=== PATIENT | female | born 1970 | race Caucasian/White ===

== ENCOUNTER 2017-03-30 10:25 | Emergency (ER) | payer OTHER ==
[~2017-03-30] VITALS: Ht 165.1 cm; Wt 70.3 kg
[~2017-03-30 10:25] MED LIST: PERCOCET 325 MG1 TA2 PO
--- NOTE | 2017-03-30 10:28 | ED GI/GU/ABDOMINAL COMPLAINT ---
History of Present Illness General Chief Complaint: Abdominal Pain/Flank Pain Stated Complaint: CP WHEN TAKING A DEEP BREATH, RLQ ABD PAIN Source: patient Exam Limitations: no limitations Vital Signs & Intake/Output Vital Signs & Intake/Output Vital Signs Date Time Temp Pulse Resp B/P B/P Pulse O2 O2 Flow FiO2 Mean Ox Delivery Rate 03/30 1247 96.6 63 18 110/55 99 Room Air 03/30 1038 98.4 79 20 112/58 96 Room Air Allergies Coded Allergies: Penicillins (Intermediate, UPSET STOMACH 03/30/17) Reconcile Medications Conjugated Estrogen Medroxypr (Prempro 0.45-1.5 MG Tablet) 0.45 MG-1.5 MG TABLET 1 TAB PO QPM HORMONE (Reported) Diazepam 10 MG TABLET 1 TAB PO DAILY PRN ANXIETY (Reported) Triage Nurses Notes Reviewed? yes ? N Is pt currently ? No Duration: intermittent Timing: recent history Severity Numbers: 7 Radiation: no radiation HPI: Patient is a 46-year-old female with past medical history of anxiety, asthma and postmenopausal symptoms who recently began Prempro in which patient states that yesterday while after an emotional and stressful situation at home she had acute onset of substernal nonradiating chest wall pain. Patient states that deep inhalation and palpation make worse. Patient states that today symptoms were still persistent however at rest she has NO complaints. Patient is an every day smoker and has been complaining of a chronic nonproductive cough with no new changes Patient did not take any medication for her symptoms. Denies any fever chills neck pain neck stiffness, nausea vomiting arm pain jaw pain diaphoresis hemoptysis shortness of breath leg swelling. Patient also does state that she has a 3 month history of right lower quadrant abdominal pain in which she described as mild in nature however she did follow up with her [facility] 3 weeks ago for a endometrial biopsy however patient failed to mention the right lower quadrant pain to the [employer] Dr. BROWN. Patient also has been complaining of right-sided scapular pain that is made worse with palpation and deep inhalation the past few weeks. Patient denies any dysuria hematuria vaginal bleeding or discharge (DARIEN CRUM) Past History Travel History Traveled to [place] past 21 day No Medical History Any Pertinent Medical History? 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 No (DARIEN CRUM) Review of Systems Review of Systems Constitutional: Reports: no symptoms. EENTM: Reports: no symptoms. Respiratory: Reports: see HPI, cough. Denies: short of breath. Cardiovascular: Reports: see HPI, chest pain. GI: Reports: see HPI, abdominal pain. Genitourinary: Reports: no symptoms. Musculoskeletal: Reports: see HPI, back pain. Skin: Reports: no symptoms. Neurological/Psychological: Reports: no symptoms. Hematologic/Endocrine: Reports: no symptoms. Immunologic/Allergic: Reports: no symptoms. All Other Systems: Reviewed and Negative (DARIEN CRUM) Physical Exam Physical Exam General Appearance: well developed/nourished, no apparent distress, alert Gastrointestinal: normal bowel sounds, soft Comments: Well-developed well-nourished person in no acute distress HEENT: Normal EENT exam, Neck: Supple, no lymphadenopathy, normal range of motion without pain or tenderness Back: Right thoracic point tenderness, normal inspection Cardiovascular: Regular rate and rhythms no murmurs rubs or gallops, normal JVP Respiratory: Substernal chest wall point tenderness upon palpation normal inspection. No respiratory distress.breath sounds clear to auscultation bilaterally Abdomen: Soft, right lower quadrant tenderness mild in nature no rebound tenderness no peritoneal signs nondistended, no appreciable organomegaly. Normal bowel sounds. No ascites Extremity: No edema, no calf tenderness to palpation, normal and equal pulses. Neuro: Alert oriented x3, motor sensory normal, Skin: No appreciable rash on exposed skin, skin is warm and dry. Psych: Mood and affect is normal, memory and judgment is normal. Core Measures ACS in differential dx? Yes Severe Sepsis Present: No Septic Shock Present: No (DARIEN CRUM) Progress Differential Diagnosis: AAA, AMI, appendicitis, biliary colic, bowel obstruction , colon cancer, cholecystitis, diverticulitis, ectopic , endometritis, esophageal varices, gastritis, hepatitis, hernia, hemorrhoids, ischemic bowel, inflamm bowel dis, intrauterine , kidney stone, Wanda-Vianey tear, ovarian cyst, ovarian torsion, pancreatitis, PID/cervicitis, peptic ulcer, PUD/ GERD, perforated viscous, SBO, threatened AB, UTI/pyelo Plan of Care: Orders Procedure Date/time Status Telemetry/Title Processor 03/30 110 Active THYROID STIMULATING HORMONE 03/30 110 Complete TROPONIN LEVEL 03/30 1102 Complete HUMAN BETA HCG SCREEN 03/30 1102 Complete FREE T4 03/30 1102 Complete D-DIMER 03/30 1102 Complete COMPREHENSIVE METABOLIC PANEL 03/30 1102 Complete CBC WITHOUT DIFFERENTIAL 03/30 110 Complete EKG 03/30 1027 Active Laboratory Tests 03/30/17 1115: Anion Gap 9, Estimated GFR > 60, BUN/Creatinine Ratio 15.0, Glucose 68, Calcium 9.9, Total Bilirubin 0.5, AST 31, ALT 30, Alkaline Phosphatase 67, Troponin I < 0.01, Total Protein 7.4, Albumin 4.5, Globulin 2.9, Albumin/Globulin Ratio 1.6, TSH 2.060, Free T4 0.93, Total Beta HCG NEGATIVE, D-Dimer High Sensitivty < 200, CBC w Diff NO MAN DIFF REQ, RBC 4.70, MCV 86.8, MCH 29.9, RDW 13.6, MPV 11.2 H, Gran % 56.4, Lymphocytes % 33.2, Monocytes % 5.3, Eosinophils % 4.7, Basophils % 0.4, Absolute Granulocytes 5.2, Absolute Lymphocytes 3.0, Absolute Monocytes 0.5 , Absolute Eosinophils 0.4, Absolute Basophils 0, PUBS MCHC 34.5 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 D-dimer was unremarkable troponin unremarkable all blood work was all unremarkable. Due to history of present illness and exam findings there is suspicion of chest wall pain and costochondritis. Patient was given ibuprofen. Chest x-ray currently is pending Chest x-ray was unremarkable. Upon discharge patient looks well no apparent distress and has no symptoms Patient also was strongly advised to follow-up with [facility] for concerns of chronic right lower abdominal pain for transvaginal ultrasound. (SHERLY BETTENCOURT,DARIEN) Diagnostic Imaging: Viewed by Me: Radiology Read. Radiology Impression: no acute abnormality, no fracture Initial ED EKG: NSR, 79 BPM Comments: PATIENT: BASHIR YOUNG PRESENT AGE: 46 PATIENT ACCOUNT NO: [id number] : 70 LOCATION: [facility] ORDERING PHYSICIAN: DARIEN BETTENCOURT SERVICE DATE: 03/30/17 EXAM TYPE: RAD - XRY-CHEST XRAY, PA AND LATERAL EXAMINATION: XR CHEST CLINICAL INFORMATION: Chest wall pain. COMPARISON: No relevant prior imaging. TECHNIQUE: 2 views of the chest were obtained. FINDINGS: Lungs are clear and well expanded. There is no focal consolidative disease, pleural effusion, or pneumothorax. The cardiac silhouette and upper mediastinal contours are normal. No acute osseous finding. IMPRESSION: Unremarkable chest radiograph. No consolidative disease or effusion. DICTATED BY: CADY WHEELER MD DATE/TIME DICTATED:03/30/171252 ASSISTANT DIRECTOR OF FINANCIAL AID:ULISES (DARIEN CRUM) Departure Departure Disposition: HOME OR SELF CARE Condition: Stable Clinical Impression Primary Impression: Chest wall pain Secondary Impressions: Abdominal pain, Costochondral pain Referrals: JOEL MILLER MD (PCP/Family) Additional Instructions: As discussed please discontinue smoking. If symptoms worsen or if YOU develop a new concerning symptom return to emergency room immediately. If no better on Tuesday follow up with primary care doctor. Continue home medications as directed Departure Forms: Customer Survey General Discharge Information (DARIEN CRUM) PA/PHOTO MASK PATTERN GENERATOR Co-Sign Statement Statement: ED Attending supervision documentation- I saw and evaluated the patient. I have also reviewed all the pertinent lab results and diagnostic results. I agree with the findings and the plan of care as documented in the PA's/PHOTO MASK PATTERN GENERATOR's documentation. x I have reviewed the ED Record and agree with the PA's/PHOTO MASK PATTERN GENERATOR's documentation. [] Additions or exceptions (if any) to the PAs/PHOTO MASK PATTERN GENERATOR's note and plan are summarized below: [] (RANDALL MAURO,GHULAM)
[2017-03-30] MEDS ORDERED: PREMPRO 0.45-11 EACH PO (11:19)
[2017-03-30] MEDS ORDERED: DIAZEPAM10 M1 PO (11:19)
[2017-03-30 11:32] LABS: ABSOLUTE BASOPHIL COUNT 0 /CUMM (0.0-0.2); ABSOLUTE EOSINOPHIL COUNT 0.4 /CUMM (0.0-0.7); ABSOLUTE GRANULOCYTE CT 5.2 /CUMM (1.4-6.5); ABSOLUTE MONOCYTE COUNT 0.5 /CUMM (0.10-0.60); BASOPHIL % 0.4 % (0.0-2.0); EOSINOPHIL % 4.7 % (0-5); GRANULOCYTE % 56.4 % (42.2-75.2); HEMATOCRIT 40.8 % (37-47); MEAN CORPUSCULAR HGB 29.9 PG (27.0-31.0); MEAN CORPUSCULAR HGB CONC 34.5 G/DL (33.0-37.0); MEAN CORPUSCULAR VOLUME 86.8 FL (81.0-99.0); MEAN PLATELET VOLUME 11.2 FL (7.4-10.4); PLATELET COUNT 169 /CUMM (130-400); RBC DISTRIBUTION WIDTH 13.6 % (11.5-14.5); WHITE BLOOD CELL COUNT 9.2 /CUMM (4.8-10.8)
[2017-03-30 12:47] VITALS: BP 110/55
--- NOTE | 2017-03-30 12:57 | RADIOLOGY REPORT ---
EXAMINATION: XR CHEST CLINICAL INFORMATION: Chest wall pain. COMPARISON: No relevant prior imaging. TECHNIQUE: 2 views of the chest were obtained. FINDINGS: Lungs are clear and well expanded. There is no focal consolidative disease, pleural effusion, or pneumothorax. The cardiac silhouette and upper mediastinal contours are normal. No acute osseous finding. IMPRESSION: Unremarkable chest radiograph. No consolidative disease or effusion.
== END 2017-03-30 13:26 ==
LOC: ERH 10:25
PROVIDERS: Physician Assistant
DX: R07.89 Other chest pain (principal); M94.0 Chondrocostal junction syndrome [Tietze]; R10.31 Right lower quadrant pain
CPT/HCPCS: 93005; 93010